=== PATIENT | female | born 1995 | race Caucasian/White ===

== ENCOUNTER 2022-11-23 14:02 | Emergency (ER) | payer OTHER ==
[~2022-11-23] VITALS: Ht 180.3 cm; Wt 84.8 kg
[2022-11-23 14:15] VITALS: BP 117/69
--- NOTE | 2022-11-23 14:15 | NUR ---
BIBA FOR ANXIETY, PALPITATIONS. TOOK ANXIETY PILLS. NAUSEA. DENIES CHEST PAIN, DIZZINESS, VOMIT. HX ANXIETY. DENIES SI/HI. CALM, COPPERATIVE, COHERENT. AAO X4. RESP EVEN AND NONLABORED. VSS. AMBULATORY
[2022-11-23] MEDS ORDERED: METOCLOPRAMIDE 10 MG TAB PO ONE (15:55)
[2022-11-23] MEDS ORDERED: METO-486 PO (16:01)
[2022-11-23 16:16] VITALS: BP 120/76
--- NOTE | 2022-11-23 16:18 | NUR ---
Patient discharged with v/s stable. Written and verbal after care instructions given and explained. Patient alert, oriented and verbalized understanding of instructions. Ambulatory with steady gait. All questions addressed prior to discharge. ID band removed. Patient advised to follow up with PMD. Rx of reglan given. Patient educated on indication of medication including possible reaction and side effects. Opportunity to ask questions provided and answered.
== END 2022-11-23 16:16 | disposition home or self-care (01) ==
LOC: MED 14:02
DX: R00.2 Palpitations (principal); F41.0 Panic disorder [episodic paroxysmal anxiety]; R11.0 Nausea; F17.200 Nicotine dependence, unspecified, uncomplicated
CPT/HCPCS: 93005; 99283; J8597